=== PATIENT | male | born 1955 | race Caucasian/White ===

== ENCOUNTER 2023-11-15 14:35 | Outpatient (CLI) | payer OTHER, MEDICAID, SELFPAY ==
--- NOTE | 2023-11-15 14:41 | MR_ITS ---
WS: [id number] MRI CERVICAL SPINE NONCONTRAST TECHNIQUE: Sagittal T1, T2 and STIR imaging. Axial T2, gradient, and fiesta imaging. CLINICAL INFORMATION: CERVICALGIA/PAIN IN L SHOULDER/WEAKNESS COMPARISON: None. FINDINGS: Straightening the normal cervical lordosis. Mild cervical curve. Mild disc bulging worse at C3-C4 and C5-C6. No high-grade central canal stenosis. Cord signal is normal. C2-C3: Mild facet arthropathy worse on the LEFT. Mild LEFT and no significant RIGHT foraminal narrowi ng. C3-C4: Mild disc bulge with osteophytic ridging. Mild to moderate bilateral bony foraminal narrowing. Moderate facet arthropathy. C4-C5: Mild disc osteophyte complex with endplate ridging. Moderate facet arthropathy. Mild to modera te LEFT and no significant RIGHT foraminal narrowing. C5-C6: RIGHT paracentral disc osteophyte complex with slight indentation of the cervical cord. Modera te RIGHT and no significant LEFT foraminal narrowing. Moderate facet arthropathy. C6-C7: LEFT eccentric disc osteophyte ridging. Mild LEFT and no significant RIGHT foraminal narrowing . Spinal canal is patent. C7-T1: Spinal canal and foramen are patent. Visualized brain stem structures: Normal. Prevertebral soft tissues: Normal. IMPRESSION: 1. Disc osteophyte complex C5-C6 eccentric to the RIGHT with moderate RIGHT bony foraminal narrowing . 2. Mild to moderate bony foraminal narrowing worse at bilateral C3-4, LEFT C4-5 3. Moderate facet arthropathy worse at C3-C4 worse in the LEFT, LEFT C4-5, and C5-6.
== END 2023-11-15 14:36 | disposition home or self-care (01) ==
LOC: RAD 14:37
PROVIDERS: Family Provider Family Medicine; Visit Provider Nurse Practitioner
DX: M48.02 Spinal stenosis, cervical region (principal); M25.512 Pain in left shoulder; M25.78 Osteophyte, vertebrae; M47.812 Spondylosis without myelopathy or radiculopathy, cervical region; R53.1 Weakness
CPT/HCPCS: 72141

== ENCOUNTER 2023-12-29 11:26 | Outpatient (CLI) | payer OTHER, MEDICAID, SELFPAY ==
--- NOTE | 2023-12-29 11:38 | MR_ITS ---
WS: [id number] MRI HEAD WITHOUT CONTRAST TECHNIQUE: Sagittal T1, T2 axial, T2 axial FLAIR, axial and coronal T1 images, axial susceptibility w eighted imaging, axial diffusion weighted images, and coronal T2 images were obtained. CLINICAL INFORMATION: THUNDERCLAP HEADACHE COMPARISON: None. FINDINGS: No evidence of restricted diffusion to suggest acute ischemia. Ventricular system and basal cisterns are patent. Mild to moderate small vessel changes. Moderate parenchymal volume loss. Volume loss wors e in the frontal lobes. Small chronic infarct LEFT parietal cortex posteriorly. Tiny chronic lacunar infarct LEFT caudate. Normal posterior fossa. Normal vascular flow voids at the skull base. No extra-axial fluid collection s. No evidence of mass or mass effect. Paranasal sinuses and mastoid air cells are well aerated. Few tiny foci of hemosiderin in the LEFT basal ganglia. Mild symmetric atrophy temporal lobes and hippoca mpal formations. Normal optic chiasm and pituitary infundibulum. IMPRESSION: 1. No evidence of restricted diffusion to suggest acute ischemia. 2. Mild to moderate small vessel changes with moderate parenchymal volume loss worse in the frontal lobes. 3. Few tiny punctate foci of hemosiderin within the LEFT basal ganglia consistent with tiny microhem orrhages. 4. Small chronic infarct LEFT parietal cortex with a small amount of encephalomalacia and gliosis. 5. Tiny chronic lacunar infarct LEFT caudate. 6. No other acute findings.
== END 2023-12-29 11:27 | disposition home or self-care (01) ==
PROVIDERS: Family Provider Family Medicine; PCP Nurse Practitioner; Visit Provider Nurse Practitioner
DX: R45.4 Irritability and anger (principal); R53.1 Weakness; G31.89 Other specified degenerative diseases of nervous system
CPT/HCPCS: 70551

== ENCOUNTER 2023-12-30 15:11 | Outpatient (CLI) | payer OTHER, MEDICAID, SELFPAY ==
--- NOTE | 2023-12-30 15:17 | MR_ITS ---
WS: [id number] MRI LEFT SHOULDER NONCONTRAST TECHNIQUE: Sagittal T2, coronal T1, T2 and proton density imaging. Axial gradient PDE imaging. CLINICAL INFORMATION: INJURY OF MUSCLE OF THE ROTATOR CUFF OF L SHOULDER COMPARISON: None. FINDINGS: Moderate degenerative arthritis AC joint with slight subacromial subdeltoid fluid. Slight impingement distal supraspinatus with subacromial spurring. Distal supraspinatus appears intact. Normal infraspi natus. Normal teres minor. Mild chronic thinning of the distal supraspinatus. Slight subluxation of the biceps tendon from the bicipital groove proximally. Biceps tendon otherwise intact within the bicipital groove. Tendinopathy intra-articular biceps tendon. Small intrasubstance tears with tendinopathy involving the subscapularis tendon distally extending to the transverse liga ment. Tendinopathy intra-articular biceps tendon. Moderate degenerative narrowing glenohumeral articu lation. Labrum appears grossly intact. IMPRESSION: 1. Moderate degenerative arthritis AC joint with chronic thinning of the distal supraspinatus which appears intact. Small amount of subacromial subdeltoid fluid. 2. Tendinopathy with small intrasubstance tears involving the distal subscapularis extending to the transverse ligament with slight medial subluxation of the biceps tendon from the proximal bicipital g roove. 3. Tendinopathy intra-articular biceps tendon. 4. No other acute findings.
== END 2023-12-30 15:12 | disposition home or self-care (01) ==
LOC: RAD 15:12
PROVIDERS: Family Provider Family Medicine; PCP Nurse Practitioner; Visit Provider Nurse Practitioner
DX: S46.812A Strain of other muscles, fascia and tendons at shoulder and upper arm level, left arm, initial encounter (principal); X58.XXXA Exposure to other specified factors, initial encounter; M13.812 Other specified arthritis, left shoulder; M75.22 Bicipital tendinitis, left shoulder
CPT/HCPCS: 73221

== ENCOUNTER → 2024-03-07 09:18 | Outpatient (BNVA) | payer OTHER, MEDICAID, SELFPAY | PROVIDERS: Family Provider Family Medicine; PCP Nurse Practitioner; Referring Provider Nurse Practitioner; Visit Provider Student in an Organized Health Care Education/Training Program | DX: M75.42 Impingement syndrome of left shoulder | CPT/HCPCS: 73030 ==

== ENCOUNTER 2024-04-18 08:33 | Outpatient (CLI) | payer OTHER, MEDICAID, SELFPAY ==
--- NOTE | 2024-04-18 08:39 | CT_ITS ---
WS: [id number] CT ANGIOGRAM CAROTID ARTERIES HISTORY: LEFT CAROTID STENOSIS TECHNIQUE: CT angiogram is performed of the carotid arteries. During arterial injection imaging is ob tained from the skull base to the aortic arch in 1.0 mm imaging. Coronal and sagittal reformats are s ubmitted, MIP imaging also reviewed. Additional multiplanar reformats of the carotid arteries are sub mitted. NASCET criteria utilized. All CT scans at [facility] use at least one of these dose o ptimization techniques: automated exposure control; mA and/or kV adjustment per patient size (include s targeted exams where dose is matched to clinical indication); or iterative reconstruction. CONTRAST: Omnipaque 350; 100 mL IV. DLP: 271.56 mGy.cm COMPARISON: None available. Right carotid: Common carotid artery: Arises normally from the innominate artery. No significant plaque or stenosis. Internal carotid artery: Minimal plaque. No stenosis. External carotid artery: Patent. Left carotid: Common carotid artery: Arises normally from the aortic arch. No significant stenosis. Internal carotid artery: Beginning in the distal common carotid artery there is a carotid stent exten ding into the ICA. Stent extends over a length of approximately 4 cm. The lumen is patent. In the mid stent there is a very high-grade stenosis with circumferential soft plaque. Stenosis is calculated a t 37% but visually there is a pretty tight stenosis of the approximately 60%. The distal stent is pat ent. External carotid artery: Patent. Right vertebral artery: Unremarkable. Left vertebral artery: Dominant and intact. Subclavian arteries: No stenosis or abnormality identified. Upper thorax: Paraseptal emphysema. Mosaic attenuation. Thyroid gland: Normal. Osseous structures: Unremarkable. Skull base: Unremarkable. CT/CT angio neck [id number] IMPRESSION: 1. LEFT cervical carotid artery stent extends over a length of approximately 4 cm. In the mid stent there is a focal area of narrowing and stenosis estimated near 60%. There is mild circumferential intimal thickening. 2. No stenosis RIGHT cervical carotid artery. 3. Mild calcified plaque to the cartilage carotid arteries.
[2024-04-18 09:27] LABS: Blood Urea Nitrogen 15 mg/dL (8-23); Glomerular Filtration Rate 74.8 mL/min (90-130)
[2024-04-18] MEDS: iohexol 350 mg/mL 500 mL Btl (per mL) IV (10:20)
== END 2024-04-18 08:34 | disposition home or self-care (01) ==
LOC: RAD 08:33
PROVIDERS: Radiology Diagnostic Radiology; Family Provider Family Medicine; PCP Nurse Practitioner; Visit Provider Nurse Practitioner Family
DX: I65.22 Occlusion and stenosis of left carotid artery (principal); Z95.828 Presence of other vascular implants and grafts; J43.8 Other emphysema
CPT/HCPCS: 70498; 82565; 84520; Q9967

== ENCOUNTER 2024-06-08 09:36 | Day surgery (SDC) | payer OTHER, MEDICAID, SELFPAY ==
[2024-06-08 10:13] VITALS: BP 174/83; PULSE 66; RESP 18; TEMP 36.2; O2SAT 98; BMI 31.1
--- NOTE | 2024-06-08 10:18 | W.PM.OPSFHP ---
Same Day Surgery H&P Indication for Procedure/HPI DATE OF PROCEDURE: June 08, 2024 CHIEF COMPLAINT/INDICATIONFOR SURGICAL PROCEDURE: need for screening colonoscopy PREOP DIAGNOSIS: need for screening colonoscopy PLANNED PROCEDURE: Operation Date: 06/08/24 11:40 Proposed Procedures p Colonoscopy 69483, G0121,Z12.11(Not Applicable) - Smooth Blake MD Medications/Allergies* Home Medications Medication Instructions Recorded Confirmed Type aspirin 325 mg tablet 325 mg PO DAILY 01/05/24 06/06/24 History blood-glucose meter (OneTouch #1 ea 01/05/24 03/07/24 History Ultra2 Meter) insulin lispro protamine-lispro 46 unit SUBCUT BID 01/05/24 06/08/24 History 100 unit/mL (75-25) subcutaneous pen (Humalog Mix 75-25 KwikPen) lancets 30 gauge (OneTouch Delica #100 ea 01/05/24 03/07/24 History Plus Lancet) lisinopril 10 mg tablet 10 mg PO DAILY 01/05/24 06/06/24 History ondansetron 4 mg disintegrating 4 mg PO DAILY PRN Nausea And 01/05/24 06/06/24 History tablet Vomiting risperidone 0.25 mg tablet 0.25 mg PO DAILY 01/05/24 06/06/24 History rosuvastatin 40 mg tablet 40 mg PO DAILY 01/05/24 06/06/24 History doxycycline hyclate 100 mg tablet 100 mg PO BID 06/06/24 06/06/24 History metronidazole 500 mg tablet 500 mg PO BID 06/06/24 06/06/24 History clopidogrel 75 mg tablet 75 mg PO DAILY 06/08/24 06/08/24 History escitalopram oxalate 20 mg tablet 20 mg PO DAILY 06/08/24 06/08/24 History omeprazole 40 mg capsule,delayed 40 mg PO BID 06/08/24 06/08/24 History release Allergies/Adverse Reactions Allergy/AdvReac Type Severity Reaction Status Date / Time No Known Allergies Allergy Verified 06/06/24 11:15 Pertinent History/Comorbid Conditions* Family History (Updated 01/05/24 @ 10:24 by Dee Hubbard MA) Diabetes Mother Father Hypertension Mother Father Social History Smoking and tobacco/nicotine status: former use of tobacco/nicotine Quit status (tobacco/nicotine): has quit using Year quit tobacco: quit 30 years ago Second hand smoke exposure: No Pertinent Exam Findings alert, oriented x 3, clear to auscultation bilaterally, regular rate & rhythm and operative site marked Recommendations Surgery/Procedure today Coding Level of Care Code Acute Code for Chg Brandy
--- NOTE | 2024-06-08 10:21 | ANES.PREANE2 ---
Pre-Anesthetic Assessment Height/Weight: Height 5 ft 5 in Weight 187 lb Temp Pulse Resp BP Pulse Ox O2 Del Method 97.1 F L 66 18 174/83 98 Room Air 06/08/24 10:13 06/08/24 10:13 06/08/24 10:13 06/08/24 10:13 06/08/24 10:13 06/08/24 10:13 Preop Diagnosis: need for screening colonoscopy Operation Date: 06/08/24 11:40 Proposed Procedures p Colonoscopy 98987, G0121,Z12.11(Not Applicable) - Smooth Blake MD Was Beta Gurjit taken within 24 hours: N/A Was Clonidine taken within 24 hours: N/A Last intake: Intake Last Liquid Date 06/07/24 Last Liquid Time 20:00 Last Solid Date 06/06/24 Last Solid Time 21:00 Social No alcohol and No tobacco Exam alert, oriented x 3 and regular rate & rhythm Airway Submandibular: within normal limits Cervical ROM: within normal limits Mallampati: Class III Comments: Comments: Edentulous Anesthetic Plan ASA status: 3 Anesthesia: MAC Other: No prior issues with anesthesia Completed prep History of hypertension on lisinopril. AM BP 174/83 S/p carotid endarterectomy on chronic Plavix/aspirin. Both taken 06/01/2024 Type 2 diabetes on chronic insulin. Took half dose this morning. AM BS 170s Patient denies any pulmonary issues METs greater than 4 Plan for MAC anesthetic Medications/Allergies Home Medications Medication Instructions Recorded Confirmed Last Taken Type aspirin 325 mg tablet 325 mg PO DAILY 01/05/24 06/06/24 06/01/24 History blood-glucose meter ([employer] #1 ea 01/05/24 03/07/24 Unknown History Ultra2 Meter) insulin lispro protamine-lispro 46 unit SUBCUT BID 01/05/24 06/08/24 06/08/24 History 100 unit/mL (75-25) subcutaneous 0600 pen (Humalog Mix 75-25 KwikPen) lancets 30 gauge (OneTouch Delica #100 ea 01/05/24 03/07/24 Unknown History Plus Lancet) lisinopril 10 mg tablet 10 mg PO DAILY 01/05/24 06/06/24 06/08/24 06:00 History ondansetron 4 mg disintegrating 4 mg PO DAILY PRN Nausea And 01/05/24 06/06/24 06/07/24 History tablet Vomiting risperidone 0.25 mg tablet 0.25 mg PO DAILY 01/05/24 06/06/24 06/07/24 History rosuvastatin 40 mg tablet 40 mg PO DAILY 01/05/24 06/06/24 06/07/24 History doxycycline hyclate 100 mg tablet 100 mg PO BID 06/06/24 06/06/24 06/06/24 History metronidazole 500 mg tablet 500 mg PO BID 06/06/24 06/06/24 06/06/24 History clopidogrel 75 mg tablet 75 mg PO DAILY 06/08/24 06/08/24 06/01/24 History escitalopram oxalate 20 mg tablet 20 mg PO DAILY 06/08/24 06/08/24 06/07/24 History omeprazole 40 mg capsule,delayed 40 mg PO BID 06/08/24 06/08/24 06/07/24 History release Allergies Allergy/AdvReac Type Severity Reaction Status Date / Time No Known Allergies Allergy Verified 06/06/24 11:15 PFSH Anesthesia Family History Mother Diabetes Hypertension Father Diabetes Hypertension Social History Smoking and tobacco/nicotine status: former use of tobacco/nicotine Quit status (tobacco/nicotine): has quit using Year quit tobacco: quit 30 years ago Second hand smoke exposure: No Data Anesthesia Cardiac Studies: No Data to Display
[2024-06-08] MEDS: sodium chloride 0.9% 1,000 ML 30 ML IV (10:24)
[2024-06-08 10:28] LABS: Glucose Point of Care 161 mg/dL (70-110)
[2024-06-08 12:08] VITALS: BP 100/58; PULSE 60; RESP 16; TEMP 36.1; O2SAT 98
[2024-06-08 12:18] VITALS: BP 116/76; PULSE 65; RESP 16; O2SAT 94
[2024-06-08 12:28] VITALS: BP 115/62; PULSE 62; RESP 16; O2SAT 99
--- NOTE | 2024-06-08 13:10 | ANE.PACU2 ---
Inpatient post-anesthesia follow up: Airway intact: Yes Vital signs: Temperature 97 F Pulse Rate 62 Respiratory Rate 16 Blood Pressure 115/62 Pulse Oximetry 99 Oxygen Delivery Me thod Room Air Oxygen Flow Rate Fraction of Inspir ed Oxygen Hydration adequate: Yes Nausea and vomiting: No Pain level: 1 Mental status: Baseline
== END 2024-06-08 13:10 | disposition home or self-care (01) ==
PROVIDERS: PCP Nurse Practitioner; Visit Provider Surgery
PROC: 0DJD8ZZ Inspection of Lower Intestinal Tract, Via Natural or Artificial Opening Endoscopic (ICD-10-PCS; CPT 45378; principal; 2024-06-08 11:40)
DX: Z12.11 Encounter for screening for malignant neoplasm of colon (principal); D12.2 Benign neoplasm of ascending colon; D12.0 Benign neoplasm of cecum; D12.4 Benign neoplasm of descending colon; D12.5 Benign neoplasm of sigmoid colon; D12.3 Benign neoplasm of transverse colon; D12.8 Benign neoplasm of rectum; Z79.4 Long term (current) use of insulin; Z87.891 Personal history of nicotine dependence; I10 Essential (primary) hypertension; E11.9 Type 2 diabetes mellitus without complications; Z79.02 Long term (current) use of antithrombotics/antiplatelets; Z79.82 Long term (current) use of aspirin
CPT/HCPCS: 36416; 45380; 45382; 45385; 82962; 88305; J2704; J7030

== ENCOUNTER → 2024-09-21 10:16 | Outpatient (BNVA) | payer OTHER, MEDICAID, SELFPAY | PROVIDERS: PCP Nurse Practitioner; Visit Provider Student in an Organized Health Care Education/Training Program | DX: M25.512 Pain in left shoulder (principal) | CPT/HCPCS: 20610; J3301 ==

== ENCOUNTER → 2025-01-17 13:45 | Outpatient (BNVA) | payer MEDICARE, MEDICAID, SELFPAY | PROVIDERS: PCP Nurse Practitioner; Visit Provider Surgery | DX: R13.10 Dysphagia, unspecified (principal); K21.9 Gastro-esophageal reflux disease without esophagitis | CPT/HCPCS: 99214 ==

== ENCOUNTER → 2025-01-30 15:00 | Outpatient (BNVA) | payer MEDICARE, SELFPAY | PROVIDERS: PCP Nurse Practitioner; Visit Provider Physician Assistant | DX: M75.42 Impingement syndrome of left shoulder (principal); M75.22 Bicipital tendinitis, left shoulder | CPT/HCPCS: 73030; 99214 ==

== ENCOUNTER 2025-02-01 10:31 | Day surgery (SDC) | payer MEDICARE, SELFPAY ==
[2025-02-01 11:05] VITALS: BP 175/83; PULSE 99; RESP 16; TEMP 36.5; O2SAT 97; BMI 29.9
[2025-02-01] MEDS: sodium chloride 0.9% 1,000 ML 15 ML IV (11:13)
--- NOTE | 2025-02-01 11:22 | W.PM.OPSUD ---
Surgery/Procedure H&P Update DATE OF PROCEDURE: February 01, 2025 DATE H&P PERFORMED: 01/17/25 H&P UPDATE INFORMATION: I have reviewed H&P completed within last 30 days, I have examined patient prior to procedure, No changes to prior documentation, Changes to prior documentation as noted here and Risks and benefits of the procedure reviewed PLANNED PROCEDURE: Operation Date: 02/01/25 12:25 Proposed Procedures p EGD Dilation W/ Balloon 94541, K21.9(Not Applicable) - Smooth Blake MD
[2025-02-01 11:24] LABS: Glucose Point of Care 246 mg/dL (70-110)
--- NOTE | 2025-02-01 11:51 | ANES.PREANE2 ---
Pre-Anesthetic Assessment Height/Weight: Height 1.65 m Weight 81.647 kg Temp Pulse Resp BP Pulse Ox O2 Del Method 97.7 F 99 16 175/83 97 Room Air 02/01/25 11:05 02/01/25 11:05 02/01/25 11:05 02/01/25 11:05 02/01/25 11:05 02/01/25 11:05 Preop Diagnosis: dysphagia Operation Date: 02/01/25 12:25 Proposed Procedures p EGD Dilation W/ Balloon 04311, K21.9(Not Applicable) - Smooth Blake MD Familial anesthetic complications: none Was Beta Gurjit taken within 24 hours: N/A Was Clonidine taken within 24 hours: N/A Last intake: Intake Last Liquid Date 01/31/25 Last Liquid Time 21:00 Last Solid Date 01/31/25 Last Solid Time 21:00 Social Alcohol and Tobacco smoke for many years, quit years ago Exam alert, oriented x 3, clear to auscultation bilaterally and regular rate & rhythm Airway Cervical ROM: within normal limits Comments: Comments: missing teeth Pulmonary None reported Symbicort PRN CV/HEM Hypertension None reported Hepatic None reported GI dysphagia Metabolic Diabetes Mellitus and Hyperlipidemia [facility] [place] None reported Neuropsych Cerebrovascular Accident (3-4 yrs ago, full recovery no deficits, carotid stent on plavix/asa held x7days) Anesthetic Plan ASA status: 3 Risk of > 500 ml blood loss (7ml/kg in children): No Medications/Allergies Home Medications ?Medication ?Instructions ?Recorded ?Confirmed ?Last Taken ?Type aspirin 325 mg tablet 325 mg PO DAILY 01/05/24 02/01/25 01/20/25 History Held on 06/08/24. Instructions: Resume on 06/12/24. blood-glucose meter ([employer]Touch #1 ea 01/05/24 02/01/25 Unknown History Ultra2 Meter) insulin lispro protamine-lispro 46 unit SUBCUT BID 01/05/24 02/01/25 01/31/25 History 100 unit/mL (75-25) subcutaneous pen (Humalog Mix 75-25 KwikPen) lancets 30 gauge (OneTouch Delica #100 ea 01/05/24 02/01/25 Unknown History Plus Lancet) lisinopril 10 mg tablet 10 mg PO DAILY 01/05/24 02/01/25 01/31/25 History ondansetron 4 mg disintegrating 4 mg PO DAILY PRN Nausea And 01/05/24 02/01/25 06/07/24 History tablet Vomiting risperidone 0.25 mg tablet 0.25 mg PO DAILY 01/05/24 02/01/25 01/31/25 History rosuvastatin 40 mg tablet 40 mg PO DAILY 01/05/24 02/01/25 01/31/25 History clopidogrel 75 mg tablet 75 mg PO DAILY 06/08/24 02/01/25 01/20/25 History Held on 06/08/24. Instructions: Resume on 06/12/24. escitalopram oxalate 20 mg tablet 20 mg PO DAILY 06/08/24 02/01/25 01/31/25 History omeprazole 40 mg capsule,delayed 40 mg PO BID 06/08/24 02/01/25 01/31/25 History release insulin glargine 100 unit/mL (3 18 unit SUBCUT BEDTIME 01/30/25 02/01/25 01/31/25 History mL) subcutaneous pen (Lantus Solostar U-100 Insulin) Allergies Allergy/AdvReac Type Severity Reaction Status Date / Time No Known Allergies Allergy Verified 01/30/25 09:40 Current Medications Generic Name Dose Route Start Last Admin Trade Name Freq PRN Reason Stop Dose Admin Sodium Chloride 1,000 mls @ 15 mls/hr 02/01/25 10:50 02/01/25 11:13 Sodium Chloride 0.9% IV 02/02/25 10:49 15 mls/hr .Q24H PRN Administration COLONOSCOPY FLUIDS PFSH Anesthesia Family History Mother Diabetes Hypertension Father Diabetes Hypertension Social History Smoking and tobacco/nicotine status: never used tobacco/nicotine Quit status (tobacco/nicotine): has quit using Year quit tobacco: quit 30 years ago Second hand smoke exposure: No
[2025-02-01 12:33] VITALS: BP 129/84; PULSE 96; RESP 18; TEMP 36.1; O2SAT 97
[2025-02-01 12:43] VITALS: BP 138/67; PULSE 98; RESP 18; TEMP 36.2; O2SAT 96
--- NOTE | 2025-02-01 13:19 | ANE.PACU2 ---
Inpatient post-anesthesia follow up: Airway intact: Yes Vital signs: Temperature 97.2 F Pulse Rate 98 Respiratory Rate 18 Blood Pressure 138/67 Pulse Oximetry 96 Oxygen Delivery Me thod Room Air Oxygen Flow Rate Fraction of Inspir ed Oxygen Hydration adequate: Yes Nausea and vomiting: No Pain level: 1 Mental status: Baseline
== END 2025-02-01 13:16 | disposition home or self-care (01) ==
PROVIDERS: PCP Nurse Practitioner; Visit Provider Surgery
DX: K22.70 Barrett's esophagus without dysplasia (principal); K29.50 Unspecified chronic gastritis without bleeding; I10 Essential (primary) hypertension; E11.9 Type 2 diabetes mellitus without complications; E78.5 Hyperlipidemia, unspecified; K21.9 Gastro-esophageal reflux disease without esophagitis; Z86.73 Personal history of transient ischemic attack (TIA), and cerebral infarction without residual deficits; Z79.82 Long term (current) use of aspirin; Z79.899 Other long term (current) drug therapy; Z79.4 Long term (current) use of insulin; Z79.02 Long term (current) use of antithrombotics/antiplatelets; Z87.891 Personal history of nicotine dependence
CPT/HCPCS: 36416; 43239; 82962; 88305; 88342; J2704; J3535; J7030

== ENCOUNTER 2025-02-21 09:47 | Outpatient (CLI) | payer MEDICARE, SELFPAY ==
--- NOTE | 2025-02-21 10:00 | FL_ITS ---
WS: [id number] Modified barium swallow, 02/21/2025 Clinical Data: Trouble swallowing liquids and solids, occasional sticking in mid esophagus. Comparison: None. Fluoroscopy time: 2min [id number] # of spot films: 0 Findings: The patient had premature spillage with food and liquids. There was minimal oral residue after swallowing. There was no aspiration or penetration. The barium tablet passed normally from the oral pharynx into the hypopharynx, then the esophagus and finally the stomach. FL/FL barium swallow modifd [id number] Impression: 1. Premature spillage with food and liquids. 2. Minimal oral residue after swallowing. 3. No aspiration or penetration.
== END 2025-02-21 09:48 | disposition home or self-care (01) ==
LOC: RAD 09:48
PROVIDERS: PCP Nurse Practitioner; Visit Provider Surgery
DX: R13.10 Dysphagia, unspecified (principal); R93.89 Abnormal findings on diagnostic imaging of other specified body structures; R03.0 Elevated blood-pressure reading, without diagnosis of hypertension
CPT/HCPCS: 74230; 92611; 99213

== ENCOUNTER 2025-03-29 06:15 | Day surgery (SDC) | payer MEDICARE, SELFPAY ==
[2025-03-29] VITALS (11 sets, daily range): BP systolic 134–200; BP diastolic 78–102; PULSE 86–104; RESP 16–18; TEMP 36.3; O2SAT 91–99
[2025-03-29] MEDS: acetaminophen 1,000 MG/100 ML PIGGYBACK 400 MG IV (06:49)
--- NOTE | 2025-03-29 07:08 | P.HP_ITS ---
Same Day Surgery H&P Indication for Procedure/HPI DATE OF PROCEDURE: March 29, 2025 CHIEF COMPLAINT/INDICATIONFOR SURGICAL PROCEDURE: Left shoulder AC joint arthritis, biceps tendinitis/subluxation, rotator cuff intrasubstance tearing, subacromial impingement syndrome PREOP DIAGNOSIS: Left shoulder AC joint arthritis, biceps tendinitis/subluxation, rotator cu PLANNED PROCEDURE: Operation Date: 03/29/25 07:45 Proposed Procedures p Shoulder Arthroscopy(Left) - Emir Flores, DO s AC Joint Resection(Left) - Emir Poolatt, DO s Bicep Tenodesis(Left) - Emir Flores, DO s Rotator Cuff Repair Versus Debridement(Left) - Emir Flores, DO s Subacromial Decompression(Left) - Emir Flores, DO Medications/Allergies* Home Medications ?Medication ?Instructions ?Recorded ?Confirmed ?Type aspirin 325 mg tablet 325 mg PO DAILY 01/05/24 History Held on 02/01/25. Instructions: Resume on 06/12/24. blood-glucose meter ([employer]Touch #1 ea 01/05/24 03/29/25 History Ultra2 Meter) insulin lispro protamine-lispro 46 unit SUBCUT BID 09/2903/29/25 History 100 unit/mL (75-25) subcutaneous pen (Humalog Mix 75-25 KwikPen) lancets 30 gauge (OneTouch Delica #100 ea 01/05/24 History Plus Lancet) lisinopril 10 mg tablet 10 mg PO DAILY 01/05/2403/07 History ondansetron 4 mg disintegrating 4 mg PO DAILY PRN Naus ea And 01/05/24 03/29/25 History tablet Vomiting risperidone 0.25 mg tablet 0.25 mg PO DAILY 01/05/24 0 03/29/25 History rosuvastatin 40 mg tablet 40 mg PO DAILY 01/05/2403/07 History clopidogrel 75 mg tablet 75 mg PO DAILY 06/08/2403/07 History Held on 02/01/25. Instructions: Resume on 02/04/25. omeprazole 40 mg capsule,delayed 40 mg PO BID 06/08/24 03/29/25 History release insulin glargine 100 unit/mL (3 18 unit SUBCUT BEDTIME 01/30/25 03/29/25 History mL) subcutaneous pen (Lantus Solostar U-100 Insulin) Allergies/Adverse Reactions Allergy/AdvReac Type Severity Reaction Status Date / Time No Known Allergies Allergy Verified 02/21/25 13:47 Current Medications: Generic Name Dose Route Start Last Admin Trade Name Freq PRN Reason Stop Dose Admin Sodium Chloride 1,000 mls @ 30 mls/hr 03/29/25 06:30 03/29/25 06:45 Sodium Chloride 0.9% IV 03/30/25 06:29 30 mls/hr .Q24H NASH Administration Pertinent History/Comorbid Conditions* Family History (Updated 01/05/24 @ 10:24 by Dee Hubbard MA) Diabetes Mother Father Hypertension Mother Father Social History Smoking and tobacco/nicotine status: never used tobacco/nicotine Quit status (tobacco/nicotine): has quit using Year quit tobacco: quit 30 years ago Second hand smoke exposure: No Pertinent Exam Findings alert, oriented x 3, operative site marked and procedure specific exam findings Please refer to detailed orthopedic examination on 01/30/2025 listed below: left Shoulder Exam: -Normal Cervical spine ROM -Negative Spurling's -active ROM 0-110 with pain and passive 110-130 degrees -Pain with Basil's but good strength -Pain with ER with elbows at the side -5/5 strength ER and IR -Positive Hawkin's impingement -Positive Hatillo's -Positive Speed's -Positive crossover arm Neer's test -TTP over AC joint and anterior shoulder -TTP posteriorly shoulder Recommendations Risks and benefits of procedure reviewed and Patient/family agree to proceed Surgery/Procedure today Other Plans: Plan to proceed to the OR today for left shoulder diagnostic and surgical arthroscopy with AC joint resection, biceps tenodesis versus tenotomy, rotator cuff repair versus debridement, subacromial decompression. Patient understands the ins and outs procedure the risk benefits complication alternatives to surgery through shared decision-making patient elects proceed with surgical inte rvention today. He understands her treatment plan here moving forward and agrees to proceed with surgery today all questions answered. He is failed to respond to conservative treatment ready proceed with surgical intervention today. Coding Level of Care Code Acute Code for [facility]
--- NOTE | 2025-03-29 07:24 | ANES.PREANE2 ---
Pre-Anesthetic Assessment Height/Weight: Height 1.65 m Weight 84.822 kg Pulse Resp BP Pulse Ox O2 Del Method 89 16 154/85 97 Room Air 03/29/25 06:33 03/29/25 06:33 03/29/25 06:33 03/29/25 06:33 03/29/25 06:33 Preop Diagnosis: Left shoulder AC joint arthritis, biceps tendinitis/subluxation, rotator cu Operation Date: 03/29/25 07:45 Proposed Procedures p Shoulder Arthroscopy(Left) - Emir Mark, DO s AC Joint Resection(Left) - Emir Barranquitas, DO s Bicep Tenodesis(Left) - Emir Barranquitas, DO s Rotator Cuff Repair Versus Debridement(Left) - Emir Barranquitas, DO s Subacromial Decompression(Left) - Emir Mark DO Familial anesthetic complications: None Was Beta Gurjit taken within 24 hours: N/A Was Clonidine taken within 24 hours: N/A Last intake: Intake Last Liquid Date 03/28/25 Last Liquid Time 21:00 Last Solid Date 03/28/25 Last Solid Time 21:00 Social Alcohol (6 pack of beers a night) and No alcohol Exam alert, oriented x 3, clear to auscultation bilaterally and regular rate & rhythm Airway Mallampati: Class IV Dentition: chipped Comments: Comments: full burton, large neck CV/HEM Hypertension GI Gastroesophageal Reflux Disease Metabolic Diabetes Mellitus, Hyperlipidemia and Morbid Obesity Neuropsych Cerebrovascular Accident (ZAID w/ stent on plavix, holding for surgery) Anesthetic Plan ASA status: 3 Anesthesia: General and Regional (specify below) Risk of > 500 ml blood loss (7ml/kg in children): No Medications/Allergies Home Medications ?Medication ?Instructions ?Recorded ?Confirmed ?Last Taken ?Type aspirin 325 mg tablet 325 mg PO DAILY 01/05/24 03/29/25 03/23/25 History Held on 02/01/25. Instructions: Resume on 06/12/24. blood-glucose meter ([facility] #1 ea 01/05/24 03/29/25 Unknown History Ultra2 Meter) insulin lispro protamine-lispro 46 unit SUBCUT BID 01/05/24 03/29/25 03/28/25 History 100 unit/mL (75-25) subcutaneous pen (Humalog Mix 75-25 KwikPen) lancets 30 gauge ([facility] #100 ea 01/05/24 03/29/25 Unknown History Plus Lancet) lisinopril 10 mg tablet 10 mg PO DAILY 01/05/24 03/29/25 03/28/25 History ondansetron 4 mg disintegrating 4 mg PO DAILY PRN Nausea And 01/05/24 03/29/25 06/07/24 History tablet Vomiting risperidone 0.25 mg tablet 0.25 mg PO DAILY 01/05/24 03/29/25 03/27/25 History rosuvastatin 40 mg tablet 40 mg PO DAILY 01/05/24 03/29/25 03/27/25 History clopidogrel 75 mg tablet 75 mg PO DAILY 06/08/24 03/29/25 03/23/25 History Held on 02/01/25. Instructions: Resume on 02/04/25. omeprazole 40 mg capsule,delayed 40 mg PO BID 06/08/24 03/29/25 03/27/25 History release insulin glargine 100 unit/mL (3 18 unit SUBCUT BEDTIME 01/30/25 03/29/25 03/27/25 History mL) subcutaneous pen (Lantus Solostar U-100 Insulin) sucralfate 100 mg/mL oral 1 g (10 mL) PO BID 2 weeks #280 mL 02/01/25 03/29/25 Unknown Rx suspension Allergies Allergy/AdvReac Type Severity Reaction Status Date / Time No Known Allergies Allergy Verified 02/21/25 13:47 Current Medications Generic Name Dose Route Start Last Admin Trade Name Freq PRN Reason Stop Dose Admin Sodium Chloride 1,000 mls @ 30 mls/hr 03/29/25 06:30 03/29/25 06:45 Sodium Chloride 0.9% IV 03/30/25 06:29 30 mls/hr .Q24H NASH Administration PFSH Anesthesia Family History Mother Diabetes Hypertension Father Diabetes Hypertension Social History Smoking and tobacco/nicotine status: never used tobacco/nicotine Quit status (tobacco/nicotine): has quit using Year quit tobacco: quit 30 years ago Second hand smoke exposure: No Anesthesia Procedures Nerve Block Nerve Block 1: Main Anesthesia: general anesthesia Time Out Performed: Yes Consent: requested by attending/covering physician, from patient, from other, risks and benefits reviewed and patient agrees to proceed Nerve block location: interscalene (L) Anesthesia monitors applied: pulse oximetry, EKG, BP cuff and oxygen Nerve block position: semi sitting Anesthetic Used: ropivicaine 0.5% (20 ml) and with decadron (4 mg) Ultrasound used to: recognize landmarks, visualize and ID brachial plexus, in supraclavicular region and visualize and ID interscalene groove Interscalene/Femoral BLK: 2 stimuplex 22 g needle used for position and inplane approach, visualize local anesthetic spread and no vascular puncture identified Injection: neg aspiration of heme Patient Tolerated Procedure: well Complications: none
[2025-03-29] MEDS: ceFAZolin 2,000 MG in sodium chloride 0.9% (plus) 50 ML 100 MG IV (08:10)
--- NOTE | 2025-03-29 09:20 | P.BOP_ITS ---
Date of Procedure: [March 29, 2025] Surgeon: [Dr. Flores DO] Truck Driver Helper(s): [Niles Flores PA-C] Procedure(s) performed: [Right shoulder diagnostic and surgical arthroscopy Biceps tenodesis Labral debridement AC joint resection Rotator cuff debridement Subacromial decompression] Findings of the procedure(s): [Patient had right shoulder partial biceps tendon tearing partial labral and rotator cuff tears as well. AC joint arthritis noted and subacromial bursitis. Procedure went well and as planned.] Estimated blood loss: [5 mL] Specimen(s) removed: [N/A] Post-operative diagnosis: [right shoulder partial biceps tendon tearing partial labral and rotator cuff tears as well. AC joint arthritis noted and subacromial bursitis.]
--- NOTE | 2025-03-29 09:23 | PM.PACU ---
PACU note Narrative: Patient is a 69-year-old male that just underwent a right shoulder diagnostic and surgical arthroscopy. Patient transferred to PACU in stable condition. Pain is well controlled. shoulder Dressing on , dry and in place. Patient's operative arm is in a shoulder immobilizer. Patient is awake and alert and able to respond to my questions accordingly. Patient's fingers are warm with good perfusion. Normal cap refill under 2 seconds. Unable to assess further range of motion in arm due to sling. Radial pulse 2+. Sensation to hand intact. Exam: awake Disposition: discharged
--- NOTE | 2025-03-29 09:25 | PM.OP ---
Operative Report Date of procedure: March 29, 2025 Surgeon: Emir Flores DO Certified Driver Examiner: Niles Flores PA-C: PA was necessary for assistance in this case with shoulder positioning to execute the procedure, assistance with instrumentation, as well as assistance with bicep tenodesis implantation/instrumentation , assist with wound closure and dressing application. Procedure: Preoperative diagnosis: Left shoulder AC joint arthritis, biceps tendinitis/subluxation, rotator cuff intrasubstance tearing, subacromial impingement syndrome Post-op diagnosis:? Left shoulder partial rotator cuff tear, AC joint arthritis noted and subacromial bursitis, biceps tendinitis with superior labral tearing/unstable bicep anchor/medial subluxating bicep tendon Procedure done: Left?shoulder?diagnostic and surgical arthroscopy biceps tenodesis Left?shoulder?diagnostic and surgical arthroscopy labral debridement Left?shoulder?diagnostic and surgical arthroscopy acromioclavicular joint resection Left?shoulder?diagnostic and surgical arthroscopy subacromial decompression (acromioplasty and bursectomy) Left shoulder diagnostic and surgical arthroscopy with rotator cuff debridement Surgeon: Emir Flores DO Estimated blood loss: 5 mL IV fluids: See anesthesia record Implants: Arthrex 4.75 bicep tenodesis loop and tack kit Complications: None Condition: stable Disposition: same day Brief History: Patient been seen and worked up in the outpatient setting for Left?shoulder?pain.? Pt had an MRI which showed findings below.? Patient's failed conservative treatment.? We talked about treatment options far as nonoperative and operative intervention.? We talked about risk benefits complication alternatives surgical nonsurgical treatment options.? Understanding risk of surgery pt agrees to proceed with surgical intervention.? All questions have been answered at this time.? Patient elects proceed with surgery and consent obtained in the preoperative holding area for left shoulder diagnostic and surgical arthroscopy with AC joint resection, biceps tenodesis versus tenotomy, rotator cuff repair versus debridement, subacromial decompression. IMPRESSION: 1. Moderate degenerative arthritis AC joint with chronic thinning of the distal supraspinatus which appears intact. Small amount of subacromial subdeltoid fluid. 2. Tendinopathy with small intrasubstance tears involving the distal subscapularis extending to the transverse ligament with slight medial subluxation of the biceps tendon from the proximal bicipital groove. 3. Tendinopathy intra-articular biceps tendon. 4. No other acute findings. Procedure: Patient seen evaluated in the preoperative holding area.? Consent reviewed and signed with patient.? Once again reviewed patient's MRI results as well as? planned surgical intervention.? Correct extremity marked.? Patient seen evaluated by anesthesia department received regional anesthesia.? Once ready for surgery was taken back to the operative suite.? Patient then subsequently underwent anesthesia per the anesthesia department was transported onto the OR table.? Patient was then placed into a lateral decubitus position with a beanbag and was appropriately secured to the bed.? All bony prominences well-padded.? Patient then had the Left upper extremity was then prepped and draped in standard orthopedic fashion.? Patient received appropriate preoperative antibiotics.? Final timeout performed. The Left upper extremity was then held in hanging from traction utilizing sterile technique.? Next started with standard diagnostic and surgical arthroscopy with posterior portal position introduced arthroscope into the glenohumeral joint.? Visualized the glenohumeral joint I then introduced a spinal needle within the rotator cuff interval to confirm appropriate anterior portal placement.? Once this was confirmed I then made my small incision and then introduced my arthroscopic shaver into the glenohumeral joint.? After flushing the joint fluid, was clearly evident patient had biceps tendon tearing as well as Superior labral tear. Patient had appreciable unstable biceps anchor most pronounced in the superior labrum. Patient also was found to have significant inflammation bicep tendinitis as well as medial subluxation. Given there appears to be healthy intra-articular tendon plan was for an intra-articular biceps tenodesis at the superior portion as it enters the intertubercular groove. Thermal wand introduced into the rotator interval. I then release of the rotator interval to have appropriate visualization and the ability to perform biceps tenodesis. At this point I established a purple passport cannula which was introduced. Next I performed an Arthrex loop and tack biceps tenodesis. Passer was then made around the tendon luggage tag stitch around and then thru the tendon. I then utilized a thermal wand to release the biceps tendon at the anchor to perform with tenotomy. I then loaded with suture onto an Arthrex 4.75 swivel lock suture anchor. A punch was then placed in appropriate position at the entry point into the intertubercular groove just superior to the subscapularis tendon. Punch was then introduced to the appropriate depth. The suture loaded on the swivel lock was then advanced held under appropriate tension and shoulder lock anchor was then advanced and had excellent fixation. Excess suture was then cut biceps tenodesis was complete. I then utilized a thermal wand to seal the edges of the superior labrum. Next I evaluated the subscapularis tendon which was intact and no evidence of tear. ?Next there was significant labral tearing at biceps anchor and circumferential.? ? I then subsequently utilized a a arthroscopic shaver and thermal wand to perform a labral debridement.? This point time I then visualized the glenohumeral joint.? The glenohumeral joint was found to have grade 2? chondromalacia throughout.? Axillary pouch was free of loose bodies from viewing the posterior portal.? Next a visualized the rotator cuff superiorly and there was found to be no evidence of rotator cuff tear patient had negative escape bubble sign.? ?This completed my work within the glenohumeral joint all fluid was suctioned free of the joint.? ?Next I reintroduced the arthroscope posteriorly.? And went to the subacromial space.?? Thermal wand was then introduced laterally and then I subsequently performed extensive bursectomy of the subacromial space.? Patient had a large anterior bone spur.? At this point time I proceeded with my AC joint resection thermal wand was used and track to the anterior edge of the acromion and then tracked all the way to the AC joint.? Once identified the AC joint this was very arthritic in nature.? Thermal wand was placed anteriorly to establish appropriate plane for AC joint resection.? Once appropriate margins and anterior inferior and anterior capsule was released I then introduced arthroscopic shaver and a bur and performed AC joint resection of both the acromion to cope plane at the AC joint and a distal clavicle resection was then performed totaling 1 cm in size and was confirmed.? This completed my AC joint resection and I then introduced the arthroscopic shaver laterally while continuing to view posteriorly.? I then performed an acromioplasty to complete my subacromial decompression prior to fixing the rotator cuff tear.? At this point I then evaluated the rotator cuff patient had just superficial fraying on the articular side less than 5% of the rotator cuff there is no evidence of thickness rotator cuff tear and as a result I then gently debrided with an arthroscopic shaver the partial fraying to stimulate bleeding. As a result arthroscopic rotator cuff debridement was performed the rest of the rotator cuff was then subsequently left alone. This was taken through range of motion and no evidence of full-thickness tear noted. ?Next I then introduced the arthroscopic shaver posteriorly to complete my subacromial decompression appropriate complaining all the way up to the lateral edge of the acromion.? This completed the surgery.? All fluid was suctioned from the?shoulder.? All instruments were removed.? The lateral incision was then closed with nylon stitches.? As well as the portal sites closed with portal nylon stitches.? Xeroform 4 x 4's ABD and tape was then applied to the Left?shoulder?and was placed into a?shoulder?abduction pillow sling for bicep tenodesis.? Patient was then awakened from anesthesia and then taken back to PACU in stable condition.? Patient tolerated procedure without any issues. Disposition: Patient taken back in stable condition recovering well.? Dressings on in place clean dry and intact.? Will be nonweightbearing to the Left upper extremity.? Follow bicep tenodesis protocol.? Patient to follow-up with me in the office in 2 weeks.? Patient will receive appropriate discharge instruction as well as pain medication postoperatively.? All questions answered.? We will contact the office for any questions or concerns.
--- NOTE | 2025-03-29 10:35 | ANE.PACU2 ---
Inpatient post-anesthesia follow up: Airway intact: Yes Vital signs: Temperature 97.4 F Pulse Rate 93 Respiratory Rate 18 Blood Pressure 154/83 Pulse Oximetry 93 Oxygen Delivery Me thod Room Air Oxygen Flow Rate 2 Fraction of Inspir ed Oxygen Hydration adequate: Yes Nausea and vomiting: No Pain level: 1 Mental status: Baseline
== END 2025-03-29 10:35 | disposition home or self-care (01) ==
PROVIDERS: PCP Nurse Practitioner; Visit Provider Student in an Organized Health Care Education/Training Program
PROC: (CPT 29805; principal; 2025-03-29 07:45)
PROC: 0RSH0ZZ Reposition Left Acromioclavicular Joint, Open Approach (ICD-10-PCS; CPT 29828; 2025-03-29 07:45)
PROC: (CPT 23430; 2025-03-29 07:45)
PROC: 0LQ24ZZ Repair Left Shoulder Tendon, Percutaneous Endoscopic Approach (ICD-10-PCS; CPT 29827; 2025-03-29 07:45)
PROC: (CPT 29826; 2025-03-29 07:45)
PROC: (CPT 29828; 2025-03-29 07:45)
DX: M75.112 Incomplete rotator cuff tear or rupture of left shoulder, not specified as traumatic (principal); M19.012 Primary osteoarthritis, left shoulder; M25.312 Other instability, left shoulder; M75.52 Bursitis of left shoulder; S43.432A Superior glenoid labrum lesion of left shoulder, initial encounter; S43.082A Other subluxation of left shoulder joint, initial encounter; I10 Essential (primary) hypertension; K21.9 Gastro-esophageal reflux disease without esophagitis; E11.9 Type 2 diabetes mellitus without complications; E78.5 Hyperlipidemia, unspecified; E66.01 Morbid (severe) obesity due to excess calories; Z68.31 Body mass index [BMI] 31.0-31.9, adult; Z86.73 Personal history of transient ischemic attack (TIA), and cerebral infarction without residual deficits; Z79.82 Long term (current) use of aspirin; Z79.4 Long term (current) use of insulin; Z83.3 Family history of diabetes mellitus; Z87.891 Personal history of nicotine dependence
CPT/HCPCS: 29828; 29823; 29824; 36416; 82962; C1713; J0131; J0169; J0690; J1100; J1885; J2371; J2405; J2704; J2795; J3010; J3490; J7030; J9999

== ENCOUNTER 2025-04-06 05:00 | Outpatient (RCR) | payer MEDICARE, SELFPAY | END 2025-05-06 23:59 | disposition home or self-care (01) | LOC: GPT 05:00 | PROVIDERS: PCP Nurse Practitioner; Visit Provider Physician Assistant | DX: Z98.890 Other specified postprocedural states (principal) | CPT/HCPCS: 97110; 97140; 97161 ==

== ENCOUNTER → 2025-04-18 10:05 | Outpatient (BNVA) | payer MEDICARE, SELFPAY | PROVIDERS: PCP Nurse Practitioner; Visit Provider Physician Assistant | DX: Z98.890 Other specified postprocedural states (principal) | CPT/HCPCS: 99024 ==

== ENCOUNTER 2025-05-07 05:00 | Outpatient (RCR) | payer MEDICARE, SELFPAY | END 2025-06-05 23:59 | disposition home or self-care (01) | LOC: GPT 05:00 | PROVIDERS: PCP Nurse Practitioner; Visit Provider Physician Assistant | DX: Z47.89 Encounter for other orthopedic aftercare (principal) | CPT/HCPCS: 97110; 97112; 97140 ==

== ENCOUNTER → 2025-06-13 10:08 | Outpatient (BNVA) | payer MEDICARE, SELFPAY | PROVIDERS: PCP Nurse Practitioner; Visit Provider Physician Assistant | DX: Z98.890 Other specified postprocedural states (principal) | CPT/HCPCS: 99024 ==